=== PATIENT | female | born 1975 | race Caucasian/White ===

== ENCOUNTER 2024-05-20 08:46 | Outpatient (CLI) | payer OTHER | END 2024-05-20 08:47 | disposition home or self-care (01) | LOC: MRI 08:46 | PROVIDERS: ATTEND Specialist | DX: E55.9 Vitamin D deficiency, unspecified (principal); M25.512 Pain in left shoulder | CPT/HCPCS: 73221 ==

== ENCOUNTER 2024-08-03 08:41 | Outpatient (CLI) | payer OTHER | END 2024-08-03 09:08 | disposition home or self-care (01) | LOC: MAMO-SONO 08:41 → SONOGRAMA 08:41 → MAMO-SONO 09:08 | PROVIDERS: ATTEND General Practice | DX: M51.9 Unspecified thoracic, thoracolumbar and lumbosacral intervertebral disc disorder (principal); D18.09 Hemangioma of other sites; E03.9 Hypothyroidism, unspecified; E04.2 Nontoxic multinodular goiter; Z12.31 Encounter for screening mammogram for malignant neoplasm of breast; N63 Unspecified lump in breast ==

== ENCOUNTER 2024-08-09 08:54 | Outpatient (CLI) | payer OTHER | END 2024-08-09 08:55 | disposition home or self-care (01) | LOC: TOM 08:54 | PROVIDERS: ATTEND General Practice | DX: D18.03 Hemangioma of intra-abdominal structures (principal); D18.09 Hemangioma of other sites; E55.9 Vitamin D deficiency, unspecified; M25.512 Pain in left shoulder; E03.9 Hypothyroidism, unspecified; E04.1 Nontoxic single thyroid nodule; N63.0 Unspecified lump in unspecified breast; M51.9 Unspecified thoracic, thoracolumbar and lumbosacral intervertebral disc disorder; Z90.711 Acquired absence of uterus with remaining cervical stump; Z11.3 Encounter for screening for infections with a predominantly sexual mode of transmission; E07.9 Disorder of thyroid, unspecified; M75.30 Calcific tendinitis of unspecified shoulder; M75.50 Bursitis of unspecified shoulder; M75.90 Shoulder lesion, unspecified, unspecified shoulder; M75.80 Other shoulder lesions, unspecified shoulder ==

== ENCOUNTER 2024-09-01 07:55 | Outpatient (CLI) | payer OTHER | END 2024-09-01 08:15 | disposition home or self-care (01) | LOC: MRI 07:55 | PROVIDERS: ATTEND Specialist | DX: N83.202 Unspecified ovarian cyst, left side (principal); R19.09 Other intra-abdominal and pelvic swelling, mass and lump | CPT/HCPCS: 72196 ==

== ENCOUNTER 2024-11-03 04:51 | Day surgery (SDC) | payer OTHER ==
[2024-10-29 10:11] LABS: EOS # 0.11 (0.04-0.54); EOS % 1.9 % (0.7-7.0); HEMATOCRIT 38.2 % (34.1-44.9); HEMOGLOBIN 13.1 g/dL (11.2-15.7); LYMPH # 1.72 (1.18-3.74); LYMPH % 29.1 % (19.3-53.1); MEAN CORPUSCULAR HEMOGLOBIN 29.7 pg (25.6-32.2); MONO # 0.37 (0.24-0.82); MONO % 6.3 % (4.7-12.5); NEUT # 3.63 (1.56-6.13); NEUT % 61.2 % (34.0-71.1); PLATELET COUNT 295 K/uL (163-369); RED BLOOD COUNT 4.41 M/uL (3.93-5.22); RED CELL DISTRIBUTION WIDTH 13.7 % (11.6-14.4)
[2024-10-29 10:27] LABS: URINE APPEARANCE Clear; URINE BILIRRUBIN Negative (NEGATIVE); URINE BLOOD Trace; URINE COLOR Yellow; URINE GLUCOSE Negative (NEGATIVE); URINE KETONE Negative (NEGATIVE); URINE LEUKOCYTE Negative; URINE NITRATE Negative; URINE PROTEIN Negative (NEGATIVE); URINE UROBILINOGEN 0.2 E.U./dl
[2024-10-29 10:30] LABS: URINE EPITHELIAL CELLS 9.1 uL (0.0-38.8); URINE RBC 14.7 uL (0.0-20.8); URINE WBC 3.3 uL (0.0-23.2)
[2024-10-29 10:52] LABS: INR 0.95; PARTIAL THROMBOPLASTIN TIME 24.2 SECONDS (22.0-34.0); PROTHROMBIN TIME 10.4 SECONDS (9.0-11.5)
[2024-10-29 11:07] LABS: ALBUMIN 3.9 gm/dL (3.4-5.0); BILIRUBIN TOTAL 0.41 mg/dL (0.3-1.2); CALCIUM 9.4 mg/dL (8.5-10.1); CREATININE SERUM 0.65 mg/dL (0.55-1.02); GFR 97.28; GLOBULINA 3.5 G/DL (2.4-3.5); POTASSIUM 4.46 mEq/L (3.5-5.1); TOTAL PROTEIN 7.4 gm/dL (6.4-8.2)
[2024-10-29 11:22] LABS: URINE CAST 0.14 uL (0.0-1.40)
[2024-10-29 11:27] VITALS: BP 121/85
[~2024-11-03] VITALS: Ht 172.7 cm; Wt 94.3 kg
[~2024-11-03 04:51] MED LIST: SYNTHROID150 MCG
[2024-11-03] MEDS ORDERED: BUPIVACAINE HCL/MPF 0.5% 30ML VIAL ONE (07:04)
[2024-11-03] MEDS ORDERED: LIDOCAINE HCL 1%/EPINEPHRINE 20ML VIAL IJ ONE (07:04)
[2024-11-03] MEDS ORDERED: CEFAZOLIN SODIUM 1,000 MG VIAL ONE (07:06)
[2024-11-03] MEDS ORDERED: SUGAMMADEX SODIUM 200 MG/2 ML VIAL IV ONE (07:57)
[2024-11-03] MEDS ORDERED: MORPHINE SULFATE 4 MG/ML VIAL IV ONE ×2 (09:20→09:50)
== END 2024-11-03 11:20 | disposition home or self-care (01) ==
LOC: CIR.AMB 04:51
PROVIDERS: ATTEND Surgery
DX: K81.1 Chronic cholecystitis (principal)